=== PATIENT | female | born 1970 | race Caucasian/White ===

== ENCOUNTER 2017-11-20 07:47 | Day surgery (SDC) | payer OTHER ==
[~2017-11-20 07:47] MED LIST: Lactated Ringers 1,000 ML IV SCH
[2017-11-20] MEDS ORDERED: Midazolam 1 MG/ML 2 ML SDV IV ONE (08:30)
[2017-11-20] MEDS ORDERED: Propofol 200 MG/20 ML SDV IV ONE (08:30)
--- NOTE | 2017-11-20 09:08 | PCM.OPNOTE ---
- General Post-Op/Procedure Note Date of Surgery/Procedure: 11/20/17 Operative Procedure(s): c scope Findings: normal exam tight curves sigmoid and rectum Pre Op Diagnosis: luq pain Post-Op Diagnosis: normal exam. tight curves sigmoid and rectum Anesthesia Technique: MAC Primary Surgeon: Law Bowling Anesthesia Provider: Maritza Salinas Pathology: none Complications: None Condition: Good Free Text/Narrative:: see dictation
--- NOTE | 2017-11-20 10:00 | OR ---
DATE OF OPERATION: 11/20/2017 SURGEON: Law Bowling MD PROCEDURE PERFORMED: Colonoscopy. PREOPERATIVE DIAGNOSIS: Left upper quadrant abdominal pain. POSTOPERATIVE DIAGNOSIS: Normal colon. INDICATIONS FOR PROCEDURE: This is a 47-year-old white female, who is referred with the above-mentioned complaints. She was offered and accepted colonoscopy as part of her workup. DESCRIPTION OF PROCEDURE: After an excellent IV sedation was administered, digital rectal exam was performed. No marked abnormality was noted. Flexible colonoscope was inserted and advanced to the cecum. The prep was excellent. The following findings were noted. Ascending colon was unremarkable. Transverse colon was unremarkable. Descending colon was unremarkable. Sigmoid and rectum, very sharp curves were encountered. There was some mucosal injury from the scope. However, this all appeared to be superficial. Given the sharp degrees of her angles this may be the etiology of her pain. The rectum and anus were unremarkable. Colon was deflated. The scope was removed. The patient tolerated the procedure well, and was taken to recovery room in good condition. /[id number] /MODL
== END 2017-11-20 10:10 | disposition home or self-care (01) ==
LOC: FB.SDS 07:47
PROVIDERS: ATTEND Surgery
DX: R10.12 Left upper quadrant pain (principal); F32.9 Major depressive disorder, single episode, unspecified; Z79.899 Other long term (current) drug therapy; Z88.0 Allergy status to penicillin
CPT/HCPCS: 45378; 81025; J2250; J2704; J7120

== ENCOUNTER 2021-10-31 07:15 | Day surgery (SDC) | payer OTHER ==
[~2021-10-31 07:15] MED LIST changes: +Sodium Chloride 0.9% 10 ML Syringe FLUSH PRN
[2021-10-31] MEDS ORDERED: Ketorolac 30 MG/ML SDV IVPUSH ONE (07:16)
[2021-10-31] MEDS ORDERED: Midazolam 1 MG/ML 2 ML SDV IV ONE (07:16)
[2021-10-31] MEDS ORDERED: Propofol 200 MG/20 ML SDV IV ONE (07:16)
[2021-10-31] MEDS ORDERED: Ondansetron 4 MG/2 ML SDV IVPUSH ONE (07:16)
[2021-10-31] MEDS ORDERED: fentaNYL 100 MCG/2 ML SDV IV ONE (07:16)
[2021-10-31] MEDS ORDERED: Lidocaine 2% 5 ML SDV INJECT ONE (07:16)
--- NOTE | 2021-10-31 08:45 | PCM.HPR ---
H & P Addendum review - H & P Addendum Review Date of Original H & P: 10/13/21 Date Reviewed: 10/31/21 Time Reviewed: 08:30 Patient was Examined: No Changes
[2021-10-31] MEDS ORDERED: Lidocaine 1% 20 ML MDV INJECT ONE (08:55)
--- NOTE | 2021-10-31 09:14 | PCM.OPNOTE ---
- General Post-Op/Procedure Note Date of Surgery/Procedure: 10/31/21 Operative Procedure(s): R CTR Pre Op Diagnosis: R CTS Post-Op Diagnosis: Same Anesthesia Technique: Local, MAC Primary Surgeon: Wesley Hale Complications: None Condition: Good
--- NOTE | 2021-10-31 13:47 | OR ---
DATE OF OPERATION: 10/31/2021 SURGEON: Wesley Hale MD PREOPERATIVE DIAGNOSIS: Right carpal tunnel. POSTOPERATIVE DIAGNOSIS: Right carpal tunnel. PROCEDURE: Right carpal tunnel release. ANESTHESIA: Local with IV sedation. PROCEDURE IN DETAIL: The patient was brought to the procedure room where she was placed on her left side and IV sedation administered. The right hand and forearm were exsanguinated and tourniquet inflated. Hand was prepped with Betadine and draped sterilely. 5 mL of 1% lidocaine was used for local anesthesia. An incision was made in the skin crease over the transverse carpal ligament and extended through the subcutaneous tissue and palmar aponeurosis until the ligament was identified. The ligament was sharply incised until the median nerve was visible. The ligament was then split distally into the palm and then proximally into the wrist. Finger palpation and inspection reveals all constricting bands to be released. The wound was closed with interrupted 4-0 Prolene vertical mattress sutures. Antibiotic ointment and a bulky sterile pressure dressing were applied. The patient tolerated the procedure well. Blood loss none. She returned to postanesthesia in stable condition. /[id number] MALENA/JANETH
== END 2021-10-31 10:45 | disposition home or self-care (01) ==
LOC: FB.SDS 07:15
PROVIDERS: ATTEND Surgery
DX: G56.03 Carpal tunnel syndrome, bilateral upper limbs (principal); I10 Essential (primary) hypertension; K21.9 Gastro-esophageal reflux disease without esophagitis; Z88.0 Allergy status to penicillin; Z79.899 Other long term (current) drug therapy
CPT/HCPCS: 01810-QZ; 81025; J1885; J2250; J2405; J2704; J3010; J7120

== ENCOUNTER 2021-11-21 08:08 | Day surgery (SDC) | payer OTHER ==
[2021-11-21] MEDS ORDERED: fentaNYL 100 MCG/2 ML SDV IV ONE (08:09)
[2021-11-21] MEDS ORDERED: Midazolam 1 MG/ML 2 ML SDV IV ONE (08:09)
[2021-11-21] MEDS ORDERED: Propofol 200 MG/20 ML SDV IV ONE (08:09)
[2021-11-21] MEDS ORDERED: Lactated Ringers 1,000 ML IV SCH (08:15)
[2021-11-21] MEDS ORDERED: Sodium Chloride 0.9% 10 ML Syringe FLUSH PRN (08:15)
--- NOTE | 2021-11-21 10:26 | PCM.HPR ---
H & P Addendum review - H & P Addendum Review Date of Original H & P: 11/07/21 Date Reviewed: 11/21/21 Time Reviewed: 10:20 Patient was Examined: No Changes
[2021-11-21] MEDS ORDERED: Lidocaine 1% 20 ML MDV INJECT ONE (10:39)
--- NOTE | 2021-11-21 10:58 | PCM.OPNOTE ---
- General Post-Op/Procedure Note Date of Surgery/Procedure: 11/21/21 Operative Procedure(s): L CTR Pre Op Diagnosis: L CTS Post-Op Diagnosis: Same Anesthesia Technique: Local, MAC Primary Surgeon: Wesley Hale Anesthesia Provider: Ayan ARCHER in mLs: 0 Complications: None Condition: Good
--- NOTE | 2021-11-21 11:53 | OR ---
DATE OF OPERATION: 11/21/2021 SURGEON: Wesley Hale MD PREOPERATIVE DIAGNOSIS: Left carpal tunnel. POSTOPERATIVE DIAGNOSIS: Left carpal tunnel. PROCEDURE: Left carpal tunnel release. ANESTHESIA: Local MAC. PROCEDURE IN DETAIL: The patient was brought to the operating room after surgical site was initialed by myself and the patient. Time-out was performed. The left hand and forearm were exsanguinated and tourniquet inflated. Hand and forearm were prepped and draped sterilely. 5 mL of 1% lidocaine was used for local anesthesia which was infiltrated in the palmar crease. A routine incision was made in the skin crease over the transverse carpal ligament. This was extended through the subcutaneous tissue and palmar aponeurosis until the transverse carpal ligament was identified. The ligament was sharply incised until the median nerve was visible. The ligament was split distally into the palm, then proximally into the wrist. Finger palpation and inspection revealed all constricting bands to be released. The wound was irrigated and closed with interrupted 5-0 Prolene vertical mattress sutures. Antibiotic ointment and a bulky sterile pressure dressing were applied. The patient tolerated the procedure well. Blood loss none. She returned to postanesthesia in stable condition. /[id number] MALENA/JANETH
== END 2021-11-21 12:10 | disposition home or self-care (01) ==
LOC: FB.SDS 08:08
PROVIDERS: ATTEND Surgery
DX: G56.03 Carpal tunnel syndrome, bilateral upper limbs (principal); I10 Essential (primary) hypertension; K21.9 Gastro-esophageal reflux disease without esophagitis; Z88.0 Allergy status to penicillin; Z79.899 Other long term (current) drug therapy
CPT/HCPCS: 64721; 81025; J2250; J2704; J3010; J7120